=== PATIENT | male | born 1965 | race Two or more races ===

== ENCOUNTER 2020-01-06 17:24 | Emergency (ER) | payer OTHER ==
[~2020-01-06] VITALS: Ht 170.2 cm; Wt 79.4 kg
[2020-01-06] MEDS ORDERED: METOCLOPRAMIDE HCL 10 MG/2 ML VIAL ONE (18:45)
[2020-01-06] MEDS ORDERED: METOCLOPRAMIDE HCL 10 MG/2 ML VIAL IV ONE (19:00)
[2020-01-06] MEDS ORDERED: IV NS 0.9% 1,000 ML IV ONE (19:00)
--- NOTE | 2020-01-06 19:05 | NUR ---
Patient awakealert non distress continue to monitor
[2020-01-06 19:11] LABS: BASOPHILS # (AUTO) 0.1 /CMM (0.0-0.2); EOSINOPHILS % (AUTO) 2.3 % (0.0-6.0); HEMATOCRIT 33 % (39-51); HEMOGLOBIN 11.1 g/dL (13.5-17.5); LYMPHOCYTES # (AUTO) 2.6 /CMM (0.8-4.8); LYMPHOCYTES % (AUTO) 29.3 % (20.0-44.0); MEAN CORPUSCULAR HGB CONC 33 g/dl (31.0-36.0); MEAN CORPUSCULAR VOLUME 85 fL (80-96); MONOCYTES # (AUTO) 0.7 /CMM (0.1-1.30); MONOCYTES % (AUTO) 7.3 % (2.0-12.0); NEUTROPHILS # (AUTO) 5.4 /CMM (1.8-8.9); NEUTROPHILS % (AUTO) 60.1 % (43.0-81.0); RED BLOOD CELL COUNT(AUTO) 3.95 MIL/uL (4.5-6.0)
[2020-01-06 19:14] LABS: CREATININE 1.9 mg/dL (0.6-1.3); POTASSIUM 4.9 mmol/L (3.5-5.1)
--- NOTE | 2020-01-06 19:23 | NUR ---
Patient back from CT noted LAC IV with redness no pain ,removed IV cath intact transfer care report to [facility] to start another IV
[2020-01-06] MEDS ORDERED: ACETAMINOPHEN 325 MG TABLET PO ONE (19:30)
--- NOTE | 2020-01-06 19:32 | NUR ---
PATIENT'S IV IS INFILTRATED DURING NORMAL SALINE INFUSION. ATTEMPTED TO START ANOTHER IV LINE ON PATIENT, UNSUCCESSFUL. PREVIOUS NURSE DOCUMENTED ADMINISTERED IV NORMAL SALINE 0.9%. MD NOTIFIED OF SITUATION. OKAY TO GIVE PATIENT WATER THROUGH PO.
[2020-01-06] MEDS ORDERED: ACETAMINOPHEN ES 500 MG TABLET ONE (19:34)
[2020-01-06 21:02] LABS: EOSINOPHILS % (MANUAL) 1 % (0-4); LYMPHOCYTES % (MANUAL) 34 % (16-48); MONOCYTES % (MANUAL) 9 % (0-11.0); NEUTROPHILS % (MANUAL) 56 (42-76)
[2020-01-06 21:08] LABS: PLATELET COUNT (AUTO) 241 /CMM (150-450)
--- NOTE | 2020-01-06 21:11 | NUR ---
Patient discharged to home in stable condition. Written and verbal after care instructions given. Patient verbalizes understanding of instruction and RX. Pt ambulated with steady gait.
[2020-01-06 21:13] VITALS: BP 132/82
== END 2020-01-06 21:13 | disposition home or self-care (01) ==
LOC: ER 17:27
DX: R51 Headache (principal); N17.9 Acute kidney failure, unspecified; I10 Essential (primary) hypertension; E11.9 Type 2 diabetes mellitus without complications
CPT/HCPCS: 36415; 70450; 71045; 80048; 85025; 85610; 85730; 96374; 99285; J2765; J7030